=== PATIENT | male | born 1975 | race Caucasian/White ===

== ENCOUNTER 2018-06-17 16:30 | Emergency (ER) | payer OTHER ==
[~2018-06-17] VITALS: Ht 198.1 cm; Wt 104.3 kg
[~2018-06-17 16:30] MED LIST: ABILIFY 5 MG TAB5 M1 PO; ABILIFY20 MG; ABILIFY20 MG PO; ALPRAZOLAM; AMBIENCR; AMBIENCR PO; ASACOL; ASACOL 400 MG400 M1 PO; ASACOL PO; BENTYL 20 MG TA20 M1 PO; BENTYL20 MG PO; CELEXA 20 MG TA20 M1; CELEXA40 MG PO; CIPROFLOXACIN500 M1 PO; COMPAZINE10 M1 PO; COMPAZINE10 MG PO; DILANTIN100 MG PO; DILAUDID; DILAUDID 4 MG TA4 M1; DILAUDID 4 MG TA4 M1 PO; DILAUDID2 M1 PO; DILAUDID8 MG PO; FENTANYL PA50 MCG/HR TP; FLAGYL500 MG PO; HYDROCODONE-AP1 EAC6 PO; IBUPROFEN 600600 M1 PO; KEPPRA 500 MG500 M1 PO; LAMICTAL100 MG PO; LORTAB 7.5/5001 TA3 PO; MEDROLDOSEPACK PO; NEURONTIN600 MG PO; NEURONTIN800 MG PO; NORCO 10-325 T1 EACH; NORCO 5-325 TA1 EACH PO; NORCO 7.5-3251 EACH PO; OMEPRAZOLE40 MG PO; PEPCID AC20 M1 PO; PERCOCET 5-3251 EACH PO; PHENERGAN 25 MG25 M1 PO; PHENERGAN 25 MG25 MG PO; PHENERGAN25 M2 RC; PHENERGAN25 MG RE; PHENERGAN50 MG RC; PREDNISONE 10 M10 M1 PO; PREDNISONE 20 M20 M1; PREDNISONE 20 M20 M1 PO; PREDNISONE PO; PREDNISONE50 MG PO; PROTONIX40 MG PO; REGLAN 10 MG TA10 MG PO; SEROQUEL; SEROQUEL XR 30300 MG; SEROQUEL XR 30300 MG PO; SIMVASTATIN20 MG; ULTRAM 50MG TAB50 MG PO; VICODIN 5-5001 EACH PO; WELCHOL 625 MG625 MG PO; XANAX XR2 MG; XANAX XR2 MG PO; XANAX1 MG PO; ZOFRAN 4 MG ORAL4 M1 DIS; ZOFRAN 4 MG ORAL4 MG PO; ZOFRAN ODT4 MG PO; ZOFRAN4 MG PO; ZOFRAN8 MG PO; ZOLPIDEM TART12.5 M1 PO
[2018-06-17] MEDS ORDERED: DILAUDID 2 MG TA2 MG PO (16:44)
[2018-06-17] MEDS ORDERED: AMBIEN 5 MG TABL5 M1 PO (16:45)
[2018-06-17 17:21] LABS: BASOPHILS 0.5 % (0.0-2.0); EOSINOPHILS 3.1 % (0.0-3.0); HEMATOCRIT 40.1 % (42.0-52.0); HEMOGLOBIN 13.7 gm/dL (14.0-18.0); LYMPHOCYTES 21.2 % (24.0-44.0); MCH 31.6 pg (26.0-34.0); MCHC 34.1 g/dL (28.0-37.0); MCV 92.7 fL (80.0-100.0); MONOCYTES 6.9 % (1.0-8.0); PLATELET COUNT 248 thou/uL (150-400); POLYS 68.3 % (36.0-66.0); RBC 4.32 mil/uL (4.50-6.00); RDW 14.1 % (10.5-14.5); WBC 7.3 thou/uL (4.0-11.0)
[2018-06-17 17:32] LABS: ANION GAP 8 mmol/L (7-16); BUN 12 mg/dL (7-18); CALCIUM 9.2 mg/dL (8.5-10.1); CHLORIDE 105 mmol/L (98-107); CO2 25 mmol/L (21-32); CREATININE 0.8 mg/dL (0.7-1.3); GLUCOSE 99 mg/dL (74-106); SODIUM 138 mmol/L (136-145)
[2018-06-17 17:37] LABS: ALBUMIN 3.3 g/dL (3.4-5.0); DIRECT BILIRUBIN < 0.1 mg/dL (<0.1-0.3); LIPASE 132 U/L (73-393); SGOT 14 U/L (15-37); SGPT 23 U/L (30-65); TOTAL BILIRUBIN 0.2 mg/dL (<0.1-1.0); TOTAL PROTEIN 7.4 g/dL (6.4-8.2)
[2018-06-17 18:58] LABS: URINE BILIRUBIN NEGATIVE (Negative); URINE BLOOD NEGATIVE (Negative); URINE CLARITY CLEAR; URINE COLOR YELLOW; URINE GLUCOSE-RANDOM* NEGATIVE (Negative); URINE KETONES NEGATIVE (Negative); URINE LEUKOCYTES NEGATIVE (Negative); URINE NITRITE NEGATIVE (Negative); URINE PROTEIN (DIPSTICK) NEGATIVE (Negative); URINE UROBILINOGEN 0.2 E.U./dl (0.2-1.0)
== END 2018-06-17 19:04 | disposition home or self-care (01) ==
LOC: ER 16:30
PROVIDERS: Physician Assistant
DX: R10.32 Left lower quadrant pain (principal); G89.29 Other chronic pain; Z87.19 Personal history of other diseases of the digestive system; F17.210 Nicotine dependence, cigarettes, uncomplicated; Z91.018 Allergy to other foods; Z88.4 Allergy status to anesthetic agent; Z88.8 Allergy status to other drugs, medicaments and biological substances